=== PATIENT | female | born 1955 | race Caucasian/White ===

== ENCOUNTER 2023-04-09 10:22 | Emergency (ER) | payer MEDICARE, BC ==
[2023-04-09] MEDS ORDERED: Sodium Chloride 0.9% 10 ML Syringe FLUSH PRN (11:14)
[2023-04-09] MEDS ORDERED: Naloxone 0.4 MG/ML SDV IVPUSH PRN (11:25)
[2023-04-09] MEDS ORDERED: fentaNYL 100 MCG/2 ML SDV IVPUSH ONE (11:25)
[2023-04-09 11:26] LABS: BASOPHILS ABSOLUTE AUTO 0.1 K/mm3 (0.0-0.2); BASOPHILS PERCENT AUTO 0.6 % (0.0-1.0); EOSINOPHILS ABSOLUTE AUTO 0.2 K/mm3 (0.0-0.4); EOSINOPHILS PERCENT AUTO 1.6 % (0.0-6.0); HEMATOCRIT 45.5 % (37.0-47.0); HEMOGLOBIN 14.8 gm/dl (12.0-16.0); IMMATURE GRAN ABSOLUTE AUTO 0.07 K/mm3 (0.00-0.05); IMMATURE GRAN PERCENT AUTO 0.7 % (0.0-0.4); LYMPHOCYTES ABSOLUTE AUTO 2.1 K/mm3 (1.0-4.8); LYMPHOCYTES PERCENT AUTO 20.3 % (24.0-44.0); MEAN CORPUSCULAR HEMOGLOBIN 31.7 pg (28.0-32.0); MEAN CORPUSCULAR HGB CONC 32.5 g/dl (32.0-36.0); MEAN CORPUSCULAR VOLUME 97.4 fl (83.0-99.0); MEAN PLATELET VOLUME 8.9 fl (9.4-12.3); MONOCYTES ABSOLUTE AUTO 0.8 K/mm3 (0.0-0.8); MONOCYTES PERCENT AUTO 7.4 % (0.0-8.0); NEUTROPHILS ABSOLUTE AUTO 7.2 K/mm3 (1.8-7.7); NEUTROPHILS PERCENT AUTO 69.4 % (41.0-71.0); PLATELET COUNT,PLT 418 K/mm3 (150-400); RED BLOOD CELL COUNT 4.67 M/mm3 (4.10-5.30); WHITE BLOOD CELL COUNT,WBC 10.38 K/mm3 (3.9-11.3)
[2023-04-09 11:36] LABS: A/G RATIO 0.7 (1-2); ALANINE AMINOTRANSFERASE,ALT 15 U/L (14-59); ALBUMIN 3.2 g/dl (3.4-5.0); ALKALINE PHOSPHATASE 96 U/L (46-116); ANION GAP 13.7 (5-15); ASPARTATE AMNIOTRANSFERASE,AST 17 U/L (15-37); BILIRUBIN TOTAL 0.2 mg/dL (0.2-1.0); BLOOD UREA NITROGEN,BUN 6 mg/dL (7-18); BUN/CREATININE RATIO 7.5 (14-18); C-REACTIVE PROTEIN <0.2 mg/dL (<1.0); CALCIUM 9.4 mg/dL (8.5-10.1); CARBON DIOXIDE,CO2 24 mEq/L (21-32); CHLORIDE,CL 105 mEq/L (98-107); CREATININE 0.8 mg/dL (0.55-1.02); EST CRCL DRUG DOSING (CG) 59.72 mL/min; ESTIMATED GFR 80 mL/min (>60); GLUCOSE RANDOM 102 mg/dL (70-99); LIPASE 18 U/L (16-77); POTASSIUM,K 3.7 mEq/L (3.5-5.1); PROTEIN TOTAL,TP 7.5 g/dl (6.4-8.2); SODIUM,NA 139 mEq/L (136-145); TROPONIN I HIGH SENSITIVITY 5 pg/mL (<=51)
[2023-04-09 11:41] LABS: APPEARANCE,URINE CLEAR (Clear); BILIRUBIN,URINE NEGATIVE (Negative); COLOR,URINE YELLOW (Yellow); GLUCOSE,URINE NEGATIVE (Negative); KETONES,URINE NEGATIVE (Negative); LEUKOCYTE ESTERASE,URINE 1+ (Negative); NITRITE,URINE NEGATIVE (Negative); OCCULT BLOOD,URINE NEGATIVE (Negative); PROTEIN,URINE NEGATIVE (Negative); UROBILINOGEN,URINE 0.2 (0.2-1.0)
[2023-04-09 11:49] LABS: BACTERIA,URINE MODERATE /hpf (FEW); MUCUS,URINE NOT SEEN /hpf (FEW); RBC,URINE 0-5 /hpf (0-5); SQUAMOUS EPITHELIAL CELLS,UR 0-5 /hpf (0-5); WBC,URINE 0-5 /hpf (0-5)
[2023-04-09] MEDS ORDERED: Ketorolac 15 MG/ML SDV IVPUSH ONE (13:09)
== END 2023-04-09 13:50 | disposition home or self-care (01) ==
LOC: JD.ED 10:22
DX: R07.81 Pleurodynia (principal); N30.00 Acute cystitis without hematuria; J43.9 Emphysema, unspecified; Z98.890 Other specified postprocedural states; W10.9XXA Fall (on) (from) unspecified stairs and steps, initial encounter
CPT/HCPCS: 36415; 71111; 80053; 81001; 83690; 84484; 85025; 86140; 87086; 87088; 87186; 93005; 96374; 96375; 99284; J1885; J3010; J3490

== ENCOUNTER 2024-04-03 14:49 | Emergency (ER) | payer MEDICARE, BC | END 2024-04-03 16:00 | disposition left against medical advice (07) | LOC: JD.ED 14:49 | DX: Z53.21 Procedure and treatment not carried out due to patient leaving prior to being seen by health care provider (principal) ==

== ENCOUNTER 2024-04-03 20:46 | Inpatient (IN) | payer MEDICARE, BC ==
[2024-04-03] MEDS: Ondansetron 4 MG/2 ML SDV IVPUSH ONE (22:40)
[2024-04-03] MEDS: Sodium Chloride 0.9% 1,000 ML IV STA (22:40)
[2024-04-03] MEDS: HYDROmorphone 0.5 MG/0.5 ML Syringe IVPUSH ONE (22:41)
[2024-04-03 22:45] LABS: BASOPHILS ABSOLUTE AUTO 0.1 K/mm3 (0.0-0.2); BASOPHILS PERCENT AUTO 0.5 % (0.0-1.0); EOSINOPHILS ABSOLUTE AUTO 0.1 K/mm3 (0.0-0.4); EOSINOPHILS PERCENT AUTO 0.5 % (0.0-6.0); HEMATOCRIT 46.8 % (37.0-47.0); HEMOGLOBIN 15.2 gm/dl (12.0-16.0); IMMATURE GRAN ABSOLUTE AUTO 0.05 K/mm3 (0.00-0.05); IMMATURE GRAN PERCENT AUTO 0.4 % (0.0-0.4); LYMPHOCYTES ABSOLUTE AUTO 2.1 K/mm3 (1.0-4.8); LYMPHOCYTES PERCENT AUTO 17.5 % (24.0-44.0); MEAN CORPUSCULAR HEMOGLOBIN 30.7 pg (28.0-32.0); MEAN CORPUSCULAR HGB CONC 32.5 g/dl (32.0-36.0); MEAN CORPUSCULAR VOLUME 94.5 fl (83.0-99.0); MEAN PLATELET VOLUME 8.5 fl (9.4-12.3); MONOCYTES ABSOLUTE AUTO 0.8 K/mm3 (0.0-0.8); MONOCYTES PERCENT AUTO 6.5 % (0.0-8.0); NEUTROPHILS PERCENT AUTO 74.6 % (41.0-71.0); PLATELET COUNT,PLT 437 K/mm3 (150-400); RED BLOOD CELL COUNT 4.95 M/mm3 (4.10-5.30); WHITE BLOOD CELL COUNT,WBC 12.08 K/mm3 (3.9-11.3)
[2024-04-03 22:49] LABS: APPEARANCE,URINE CLEAR (Clear); BILIRUBIN,URINE NEGATIVE (Negative); COLOR,URINE YELLOW (Yellow); GLUCOSE,URINE NEGATIVE (Negative); KETONES,URINE NEGATIVE (Negative); LEUKOCYTE ESTERASE,URINE TRACE (Negative); NITRITE,URINE NEGATIVE (Negative); OCCULT BLOOD,URINE NEGATIVE (Negative); PROTEIN,URINE NEGATIVE (Negative); UROBILINOGEN,URINE 0.2 (0.2-1.0)
[2024-04-03 23:09] LABS: A/G RATIO 0.9 (1-2); ALBUMIN 3.6 g/dl (3.4-5.0); ANION GAP 15.4 (5-15); BILIRUBIN TOTAL 0.4 mg/dL (0.2-1.0); BUN/CREATININE RATIO 6.7 (14-18); C-REACTIVE PROTEIN 0.35 mg/dL (<0.30); CREATININE 0.9 mg/dL (0.55-1.02); EST CRCL DRUG DOSING (CG) 54.45 mL/min; POTASSIUM,K 3.4 mEq/L (3.5-5.1); PROTEIN TOTAL,TP 7.7 g/dl (6.4-8.2)
[2024-04-03 23:17] LABS: CALCIUM 10.2 mg/dL (8.5-10.1)
[2024-04-03] MEDS: Sodium Chloride 0.9% 10 ML Syringe FLUSH PRN (23:18)
[2024-04-03 23:19] LABS: RBC,URINE 0-5 /hpf (0-5); SQUAMOUS EPITHELIAL CELLS,UR 0-5 /hpf (0-5)
[2024-04-03 23:20] LABS: BACTERIA,URINE FEW /hpf (FEW); MUCUS,URINE FEW /hpf (FEW)
[2024-04-03] MEDS: Iopamidol 612 MG/ML 100 ML Bottle IVPUSH ONE (23:38)
[2024-04-04] MEDS ORDERED: Magnesium Citrate Solution 296 ML Bottle PO ONE (02:30)
[2024-04-04] MEDS: LORazepam 2 MG/ML SDV IVPUSH ONE (02:46)
[2024-04-04] MEDS: Ondansetron 4 MG/2 ML SDV IVPUSH ONE (02:47)
[2024-04-04] MEDS: metroNIDAZOLE/Normal Saline 500 MG in Premix Bag 1 BAG IV ONE (02:47)
[2024-04-04] MEDS: HYDROmorphone 0.5 MG/0.5 ML Syringe IVPUSH ONE (02:47)
[2024-04-04] MEDS: Levofloxacin/Dextrose 5%-Water 750 MG in Premix Bag 1 BAG IV ONE (04:01)
[2024-04-04] MEDS: Enoxaparin 40 MG/0.4 ML Syringe SUBCUT SCH (08:01)
[2024-04-04] MEDS: Magnesium Citrate Solution 296 ML Bottle PO ONE (08:02)
[2024-04-04] MEDS: Docusate Sodium 100 MG Cap PO SCH (10:09)
[2024-04-04] MEDS: HYDROmorphone 0.5 MG/0.5 ML Syringe IVPUSH PRN (10:11)
[2024-04-04] MEDS: Amitriptyline 25 MG Tab PO SCH (21:51)
[2024-04-04] MEDS: metroNIDAZOLE/Normal Saline 500 MG in Premix Bag 1 BAG IV SCH (21:52)
[2024-04-04] MEDS: Sertraline 50 MG Tab PO SCH (21:52)
[2024-04-05 05:36] LABS: HEMATOCRIT 38.8 % (37.0-47.0); HEMOGLOBIN 12.6 gm/dl (12.0-16.0); MEAN CORPUSCULAR HEMOGLOBIN 31.1 pg (28.0-32.0); MEAN CORPUSCULAR HGB CONC 32.5 g/dl (32.0-36.0); MEAN CORPUSCULAR VOLUME 95.8 fl (83.0-99.0); MEAN PLATELET VOLUME 8.8 fl (9.4-12.3); PLATELET COUNT,PLT 336 K/mm3 (150-400); RED BLOOD CELL COUNT 4.05 M/mm3 (4.10-5.30); WHITE BLOOD CELL COUNT,WBC 8.44 K/mm3 (3.9-11.3)
[2024-04-05 05:54] LABS: A/G RATIO 0.8 (1-2); ALBUMIN 2.7 g/dl (3.4-5.0); ANION GAP 11.9 (5-15); BILIRUBIN TOTAL 0.4 mg/dL (0.2-1.0); C-REACTIVE PROTEIN 0.45 mg/dL (<0.30); CALCIUM 9.1 mg/dL (8.5-10.1); CREATININE 0.7 mg/dL (0.55-1.02); EST CRCL DRUG DOSING (CG) 70.01 mL/min; POTASSIUM,K 3.9 mEq/L (3.5-5.1)
[2024-04-05] MEDS: Levofloxacin/Dextrose 5%-Water 750 MG in Premix Bag 1 BAG IV SCH (08:50)
[2024-04-05] MEDS: Polyethylene Glycol 3350 Powder 17 GM Packet PO SCH (08:50)
[2024-04-05] MEDS: Rosuvastatin 10 MG Tab PO SCH (08:50)
[2024-04-05] MEDS: Tiotropium Bromide 4 GM Inhalation Spray (2.5mcg/1 dose; 10 doses) INH SCH (09:40)
[2024-04-05] MEDS: oxyCODONE 5 MG Tab PO PRN (19:30)
[2024-04-06 05:41] LABS: HEMATOCRIT 40.4 % (37.0-47.0); HEMOGLOBIN 13.1 gm/dl (12.0-16.0); MEAN CORPUSCULAR HEMOGLOBIN 30.8 pg (28.0-32.0); MEAN CORPUSCULAR HGB CONC 32.4 g/dl (32.0-36.0); MEAN CORPUSCULAR VOLUME 95.1 fl (83.0-99.0); MEAN PLATELET VOLUME 8.9 fl (9.4-12.3); PLATELET COUNT,PLT 370 K/mm3 (150-400); RED BLOOD CELL COUNT 4.25 M/mm3 (4.10-5.30); WHITE BLOOD CELL COUNT,WBC 7.97 K/mm3 (3.9-11.3)
[2024-04-06 06:01] LABS: A/G RATIO 0.8 (1-2); ALBUMIN 2.7 g/dl (3.4-5.0); ANION GAP 9.9 (5-15); BILIRUBIN TOTAL 0.3 mg/dL (0.2-1.0); BUN/CREATININE RATIO 7.8 (14-18); C-REACTIVE PROTEIN 0.47 mg/dL (<0.30); CALCIUM 9.4 mg/dL (8.5-10.1); CREATININE 0.9 mg/dL (0.55-1.02); EST CRCL DRUG DOSING (CG) 54.45 mL/min; POTASSIUM,K 3.9 mEq/L (3.5-5.1); PROTEIN TOTAL,TP 6.2 g/dl (6.4-8.2)
[2024-04-06] MEDS: Ondansetron 4 MG/2 ML SDV IV PRN (09:58)
[2024-04-07] MEDS: Acetaminophen 325 MG Tab PO PRN (00:36)
[2024-04-07] MEDS ORDERED: Calcium Carbonate 500 MG Tab.Chew PO PRN (05:13)
[2024-04-07 06:10] LABS: A/G RATIO 0.8 (1-2); ALBUMIN 2.8 g/dl (3.4-5.0); BILIRUBIN TOTAL 0.2 mg/dL (0.2-1.0); BUN/CREATININE RATIO 7.8 (14-18); C-REACTIVE PROTEIN 0.55 mg/dL (<0.30); CALCIUM 9.2 mg/dL (8.5-10.1); CREATININE 0.9 mg/dL (0.55-1.02); EST CRCL DRUG DOSING (CG) 54.45 mL/min; PROTEIN TOTAL,TP 6.2 g/dl (6.4-8.2)
== END 2024-04-07 12:56 | disposition home or self-care (01) | DRG 392 ==
LOC: JD.ED 20:46 → JD.MS 04-04 06:09
PROVIDERS: ADMIT Internal Medicine; ATTEND Internal Medicine
DX: K52.9 Noninfective gastroenteritis and colitis, unspecified (principal); A09 Infectious gastroenteritis and colitis, unspecified; N30.00 Acute cystitis without hematuria; K59.00 Constipation, unspecified; H54.7 Unspecified visual loss; D75.839 Thrombocytosis, unspecified; E78.00 Pure hypercholesterolemia, unspecified; J44.9 Chronic obstructive pulmonary disease, unspecified; Z90.49 Acquired absence of other specified parts of digestive tract; K59.09 Other constipation; F41.9 Anxiety disorder, unspecified; F32.A Depression, unspecified; E87.6 Hypokalemia; I10 Essential (primary) hypertension; D47.3 Essential (hemorrhagic) thrombocythemia; E66.9 Obesity, unspecified; Z90.710 Acquired absence of both cervix and uterus; Z68.33 Body mass index [BMI] 33.0-33.9, adult; Z79.899 Other long term (current) drug therapy; Z98.49 Cataract extraction status, unspecified eye; Z98.890 Other specified postprocedural states; Z90.89 Acquired absence of other organs; Z87.891 Personal history of nicotine dependence
CPT/HCPCS: 36415; 74177; 80053; 81001; 83690; 85025; 86140; 87086; J1171 ×2; J1836; J1956; J2060; J2405 ×2; J3490; J7030; Q9967; 71046; 71046-26; 85027; 94640; 94761; 99284; A9270-GY; J1650

== ENCOUNTER 2024-06-07 08:47 | Day surgery (SDC) | payer MEDICARE, BC ==
[~2024-06-07 08:47] MED LIST: HYDROmorphone 0.5 MG/0.5 ML Syringe IVPUSH PRN; Ondansetron 4 MG/2 ML SDV IVPUSH PRN; Sodium Chloride 0.9% 10 ML Syringe FLUSH PRN; Sodium Chloride 0.9% 10 ML Syringe FLUSH SCH; fentaNYL 100 MCG/2 ML SDV IVPUSH PRN
[2024-06-07] MEDS: Lactated Ringers 1,000 ML IV SCH (09:20)
[2024-06-07] MEDS ORDERED: Propofol 200 MG/20 ML SDV ONE ×4 (10:02→11:38)
[2024-06-07] MEDS ORDERED: Albuterol/Ipratropium 3.0-0.5 MG/3 ML Neb Soln ONE (10:20)
[2024-06-07] MEDS: Albuterol/Ipratropium 3.0-0.5 MG/3 ML Neb Soln NEB ONE (10:25)
== END 2024-06-07 13:09 | disposition home or self-care (01) ==
LOC: JD.SDS 08:47
PROVIDERS: ATTEND Surgery
DX: D12.3 Benign neoplasm of transverse colon (principal); D12.8 Benign neoplasm of rectum; K63.89 Other specified diseases of intestine; K29.50 Unspecified chronic gastritis without bleeding; K29.80 Duodenitis without bleeding; K44.9 Diaphragmatic hernia without obstruction or gangrene; I10 Essential (primary) hypertension; K21.9 Gastro-esophageal reflux disease without esophagitis; R13.10 Dysphagia, unspecified; Z79.899 Other long term (current) drug therapy; Z79.82 Long term (current) use of aspirin; Z87.891 Personal history of nicotine dependence
CPT/HCPCS: 43239; 45380; 45385; 88305; 88342; J2704; J7120; 00813; J7620-GY

== ENCOUNTER 2025-04-12 06:04 | Day surgery (SDC) | payer MEDICARE, BC ==
[~2025-04-12 06:04] MED LIST changes: -HYDROmorphone 0.5 MG/0.5 ML Syringe IVPUSH PRN; -Ondansetron 4 MG/2 ML SDV IVPUSH PRN; -fentaNYL 100 MCG/2 ML SDV IVPUSH PRN
[2025-04-12] MEDS: Lactated Ringers 1,000 ML IV SCH (06:40)
[2025-04-12] MEDS ORDERED: Propofol 200 MG/20 ML SDV ONE ×2 (07:03→08:08)
[2025-04-12] MEDS: Ketorolac 15 MG/ML SDV IVPUSH PRN (09:00)
== END 2025-04-12 09:30 | disposition home or self-care (01) ==
LOC: JD.SDS 06:04
PROVIDERS: ATTEND Surgery
DX: Z12.11 Encounter for screening for malignant neoplasm of colon (principal); K57.30 Diverticulosis of large intestine without perforation or abscess without bleeding; K64.0 First degree hemorrhoids; I10 Essential (primary) hypertension; E66.9 Obesity, unspecified; Z68.37 Body mass index [BMI] 37.0-37.9, adult; Z79.82 Long term (current) use of aspirin; Z87.891 Personal history of nicotine dependence; Z79.899 Other long term (current) drug therapy; Z86.0101 Personal history of adenomatous and serrated colon polyps
CPT/HCPCS: G0105; J1885; J2003; J2704; J7120; 00812; 99100